=== PATIENT | male | born 1945 | race Caucasian/White ===

== ENCOUNTER 2019-03-31 06:10 | Day surgery (SDC) | payer MEDICARE ==
[2019-03-31] VITALS (11 sets, daily range): BP systolic 130–165; BP diastolic 50–82
[~2019-03-31] VITALS: Ht 170.2 cm; Wt 111.1 kg
[2019-03-31] MEDS ORDERED: Pred Forte 1% Opth Susp 1ml RIGHT EYE ONE (07:00)
[2019-03-31] MEDS: Vigamox Opth Soln 3ml RIGHT EYE SCH ×3 (07:03→07:20)
[2019-03-31] MEDS: Phenylephrine 2.5% Op 2ml Soln RIGHT EYE SCH ×3 (07:03→07:20)
[2019-03-31] MEDS: Flurbiprofen 0.03% Opth Sol 2.5ml RIGHT EYE SCH ×3 (07:03→07:20)
[2019-03-31] MEDS: Cyclopentolate 1% Opth Sol 2ml RIGHT EYE SCH ×3 (07:03→07:20)
[2019-03-31] MEDS ORDERED: ATORVASTATIN CA20 MG ORAL (07:06)
[2019-03-31] MEDS ORDERED: FOLIC ACID1 MG ORAL (07:06)
[2019-03-31] MEDS ORDERED: LOSARTAN-HCTZ1 EACH ORAL (07:06)
[2019-03-31] MEDS ORDERED: ASPIRIN81 MG ORAL (07:07)
[2019-03-31] MEDS ORDERED: PREDNISONE10 MG ORAL (07:08)
[2019-03-31 07:26] LABS: BASOPHILS % (AUTO) 0.8 % (0.0-2.0); EOSINOPHILS % (AUTO) 0.7 % (0.0-3.0); HEMATOCRIT 42.5 % (42.0-52.0); HEMOGLOBIN 14.1 G/DL (14.2-18.0); LYMPHOCYTES % (AUTO) 13.7 % (20.0-45.0); MEAN CORPUSCULAR VOLUME 89 FL (80-99); MONOCYTES % (AUTO) 5.1 % (1.0-10.0); NEUTROPHILS % (AUTO) 79.7 % (45.0-75.0); PLATELET COUNT 190 K/UL (150-450); RED BLOOD COUNT 4.77 M/UL (4.70-6.10); RED CELL DISTRIBUTION WIDTH 13.3 % (11.6-14.8); WHITE BLOOD COUNT 13.2 K/UL (4.8-10.8)
[2019-03-31] MEDS ORDERED: EPINEPHrine 1mg/1ml Amp ONE (07:27)
[2019-03-31] MEDS ORDERED: Dexamethasone 4mg/ml vial ONE (07:28)
[2019-03-31] MEDS ORDERED: Kenalog-10 5ml Inj ONE (07:28)
[2019-03-31] MEDS ORDERED: Kenalog-40 1ml Vial ONE (07:28)
[2019-03-31] MEDS ORDERED: BSS 500ml btl ONE (07:28)
[2019-03-31] MEDS ORDERED: BSS 15ml BTL ONE (07:28)
[2019-03-31] MEDS ORDERED: Maxitrol Opth Oint 3.5gm ONE (07:28)
[2019-03-31] MEDS ORDERED: Lidocaine 2% MPF 5ml Vial INJ ONE (07:28)
[2019-03-31] MEDS ORDERED: Povidone-Iodine 5% opth solution ONE (07:28)
[2019-03-31] MEDS ORDERED: Bupivacaine 0.75% 30ml vial INJ ONE (07:29)
[2019-03-31] MEDS ORDERED: Tetracaine 0.5% Opth 4ml Soln ONE (07:29)
[2019-03-31] MEDS ORDERED: Sodium Hyaluronate 10 mg/ml 0.85ml ONE (07:29)
[2019-03-31 07:36] LABS: ANION GAP 7 mmol/L (5-15); BLOOD UREA NITROGEN 17 mg/dL (7-18); CALCIUM 9.3 MG/DL (8.5-10.1); CARBON DIOXIDE 29 MMOL/L (21-32); CHLORIDE 102 MMOL/L (98-107); CREATININE 0.9 MG/DL (0.55-1.30); POTASSIUM 4.6 MMOL/L (3.5-5.1); SODIUM 138 MMOL/L (136-145)
--- NOTE | 2019-03-31 09:20 | Anethesia Preoperative Eval ---
Anesthesia Pre-op PMH/ROS General Date of Evaluation: Mar 31, 2019 Anesthesiologist: Urban ASA Score: ASA 3 Mallampati Score Class I : Soft palate, uvula, fauces, pillars visible Class II: Soft palate, uvula, fauces visible Class III: Soft palate, base of uvula visible Class IV: Only hard plate visible Mallampati Classification: Class III Surgeon: Bijan Diagnosis: Right eye retinal detachment Surgical Procedure: Right eye vitrectomy and cornea repair Anesthesia History: none Family History: no anesthesia problems Allergies: Coded Allergies: No Known Allergies (Unverified , 03/28/19) Medications: see eMAR Patient NPO?: Yes NPO Date: Mar 30, 2019 NPO Time: 20:00 Past Medical History Cardiovascular: Reports: HTN, CAD - s/p CABG-quintuple bypass, 1998. Stable. No CP, NO SOB, METS>4, other - HLD; Denies: MA, valve dz, arrhythmia Pulmonary: Reports: ROBERTO CARLOS - severe, uses CPAP; Denies: asthma, COPD, other Gastrointestinal/Genitourinary: Denies: GERD, CRI, ESRD, other Neurologic/Psychiatric: Denies: dementia, CVA, depression/anxiety, TIA, other Endocrine: Denies: DM, hypothyroidism, steroids, other HEENT: Denies: cataract (L), cataract (R), glaucoma, NIKOLAI (L), NIKOLAI (R), other Hematology/Immune: Denies: anemia, DVT, bleeding disorder, other Musculoskeletal/Integumentary: Denies: OA, RA, DJD, DDD, edema, other Other: obesity - morbid PSxH Narrative: CABG-quintuple bypass, bilateral corneal transplants, T&A, lap appy, bilateral CTR Anesthesia Pre-op Phys. Exam Physician Exam Last Vital Signs Date Time Temp Pulse Resp B/P (MAP) Pulse Ox O2 Delivery O2 Flow Rate FiO2 03/31/19 07:16 Room Air 03/31/19 06:52 96.7 62 18 131/68 95 Constitutional: NAD Cardiovascular: RRR Respiratory: other - distant/diminished breath sounds bilaterally Airway Exam Mallampati Score: Class III MO: limited Neck: obese, short TMD: <2FB ROM: limited Teeth: missing, intact Anesthesia Pre-op A/P Labs Hematology Test 03/31/19 07:05 White Blood Count 13.2 K/UL (4.8-10.8) H Red Blood Count 4.77 M/UL (4.70-6.10) Hemoglobin 14.1 G/DL (14.2-18.0) L Hematocrit 42.5 % (42.0-52.0) Mean Corpuscular Volume 89 FL (80-99) Mean Corpuscular Hemoglobin 29.6 PG (27.0-31.0) Mean Corpuscular Hemoglobin Concent 33.2 G/DL (32.0-36.0) Red Cell Distribution Width 13.3 % (11.6-14.8) Platelet Count 190 K/UL (150-450) Mean Platelet Volume 6.7 FL (6.5-10.1) Neutrophils (%) (Auto) 79.7 % (45.0-75.0) H Lymphocytes (%) (Auto) 13.7 % (20.0-45.0) L Monocytes (%) (Auto) 5.1 % (1.0-10.0) Eosinophils (%) (Auto) 0.7 % (0.0-3.0) Basophils (%) (Auto) 0.8 % (0.0-2.0) Chemistry Test 03/31/19 07:05 Sodium Level 138 MMOL/L (136-145) Potassium Level 4.6 MMOL/L (3.5-5.1) Chloride Level 102 MMOL/L (98-107) Carbon Dioxide Level 29 MMOL/L (21-32) Anion Gap 7 mmol/L (5-15) Blood Urea Nitrogen 17 mg/dL (7-18) Creatinine 0.9 MG/DL (0.55-1.30) Estimat Glomerular Filtration Rate mL/min (>60) Glucose Level 110 MG/DL (74-106) H Calcium Level 9.3 MG/DL (8.5-10.1) Studies Pre-op Studies: EKG - SB arrythmia with inverted t waves in anterior leads- this is patients baseline as per control systems specialist Risk Assessment & Plan Assessment: ASA III Plan: GA Status Change Before Surgery: No Pre-Antibiotics Drug: N/A Mariya Mello MD Mar 31, 2019 09:20
--- NOTE | 2019-03-31 09:24 | Pre-Procedure Note/Attestation ---
Pre-Procedure Note/Attestation Complete Prior to Procedure Planned Procedure: right Procedure Narrative: 1) PPV, endolaser, possible gas injection, possible silicone oil injection Right eye. 2) Reinforcement of penetrating keratoplasty wound RIght eye Indications for Procedure Pre-Operative Diagnosis: Rupture of penetrating keratoplasty wound, vitreous hemorrhage, possible localized retinal detachment Right eye Attestation I attest that I discussed the nature of the procedure; its benefits; risks and complications; and alternatives (and the risks and benefits of such alternatives ), prior to the procedure, with the patient (or the patient's legal education courses sales representative). I attest that, if there was a reasonable possibility of needing a blood transfusion, the patient (or the patient's legal education courses sales representative) was given the [place] [facility] standardized written summary, pursuant to the [place] Blood Safety Act ([place] Health and Safety Code # 1645, as amended). I attest that I re-evaluated the patient just prior to the surgery and that there has been no change in the patient's H&P, except as documented below: Max Hugo MD Mar 31, 2019 09:24
[2019-03-31] MEDS ORDERED: LR 1000ml ONE (09:30)
[2019-03-31] MEDS ORDERED: HYDROcodone/Acetamin 5/325 tab ORAL PRN (09:30)
[2019-03-31] MEDS ORDERED: Sterile Water Irrig 1000ml IRRIG ONE (09:30)
[2019-03-31] MEDS ORDERED: NS Irrig 1000ml ONE (09:30)
[2019-03-31] MEDS ORDERED: Propofol 200mg/20ml IV ONE (09:35)
[2019-03-31] MEDS ORDERED: fentaNYL 100 mcg/2 mL IV ONE (09:35)
[2019-03-31] MEDS ORDERED: Midazolam 2mg/2ml Inj ONE (09:35)
[2019-03-31] MEDS ORDERED: Lidocaine 1% MPF 10mg/ml 5ml ONE (09:35)
[2019-03-31] MEDS ORDERED: Fluorescein Strips ONE ×2 (09:58→10:03)
[2019-03-31] MEDS ORDERED: LR 1000ml 1,000 ML IVLG SCH (10:11)
[2019-03-31] MEDS ORDERED: LORazepam Inj 2mg/ml 1ml IV PRN (10:15)
[2019-03-31] MEDS ORDERED: DiphenhydrAMINE 50mg/ml Inj IVP PRN (10:15)
[2019-03-31] MEDS ORDERED: Metoclopramide 10mg/2ml Inj IVP PRN (10:15)
--- NOTE | 2019-03-31 12:15 | 48 Hour Post Anesthesia Eval ---
Post Anesthesia Evaluation Procedure: Right eye posterior vitrectomy, and corneal repair Date of Evaluation: Mar 31, 2019 Airway: patent Nausea: No Vomiting: No Pain Intensity: 0 Hydration Status: adequate Cardiopulmonary Status: at baseline Mental Status/LOC: patient returned to baseline Post-Anesthesia Complications: 0 Follow-up care needed: ready to discharge Mariya Mello MD Mar 31, 2019 12:15
--- NOTE | 2019-03-31 12:15 | Immediate Post-Op Evaluation ---
Immediate Post-Op Evalulation Immediate Post-Op Evalulation Procedure: Right eye posterior vitrectomy, and corneal repair Date of Evaluation: Mar 31, 2019 Time of Evaluation: 12:14 IV Fluids: 600 Blood Products: 0 Estimated Blood Loss: 0 Urinary Output: 0 Blood Pressure Systolic: 165 Blood Pressure Diastolic: 82 Pulse Rate: 72 Respiratory Rate: 16 O2 Sat by Pulse Oximetry: 99 Temperature (Fahrenheit): 97.2 Pain Score (1-10): 0 Nausea: No Vomiting: No Complications 0 Patient Status: awake, reacts, patent, none Hydration Status: adequate Drug: N/A Mariya Mello MD Mar 31, 2019 12:15
--- NOTE | 2019-03-31 20:45 | Operative Note - Dictated ---
DATE OF OPERATION: 03/31/2019 PREOPERATIVE DIAGNOSES: Corneal wound rupture with loss of intraocular contents, vitreous hemorrhage, and retinal detachment, right eye. POSTOPERATIVE DIAGNOSES: Corneal wound rupture with loss of intraocular contents, vitreous hemorrhage, and retinal detachment, right eye. PROCEDURES: This was performed by Dr. Rene Chavez. Please refer to a separate operative report. This procedure was reinforcement of corneal transplant wound with lysis of anterior chamber adhesions and the next surgery performed by Dr. Hugo was a pars plana vitrectomy, membrane dissection, posterior retinotomy, Kenalog injection, endolaser, and silicone oil injection to right eye. SURGEONS: For the first procedure, Dr. Chavez with assistant in nursing, Dr. Hugo. Second procedure, Dr. Hugo with assistant in nursing, Dr. Chavez. ANESTHESIA: General by Dr. Bean. JUSTIFICATION FOR SURGERY: This is a 73-year-old gentleman, who sustained an accidental rupture of his globe while imbrication in [place] with exposure of the intra-ocular contents. There was primary closure in [place], but on return to the [facility], he was found to have a leaking corneal transplant wound as well as a vitreous hemorrhage and underlying retinal detachment. BRIEF NOTE: The patient was brought to the operating room and placed on OR table in supine position. After time-out was performed and agreed upon by the staff, general anesthesia was induced by Dr. Bean. The patient was then prepped and draped in normal manner. A lid speculum was inserted into the right eye. The first portion of the procedure was performed by Dr. Chavez with reinforcement of the wound and lysis of adhesions. Please refer to an operative report done by Dr. Chavez. The procedure was then turned over to Dr. Hugo. Using a 23-gauge trocar system, cannulas were placed in all except infranasal quadrant. Infusion secured inferotemporally. Vitrectomy was begun posterior to the iris plane. Initially adhesions coming forward into the anterior chamber and touching the iris were lysed. Kenalog was used to aid in visualization of the vitreous. A large bullous retinal detachment was seen inferiorly with the macula appearing to either be shallowly detached or remaining on. Scleral depression was done and no definite peripheral breaks, tears, or dialyses were seen. Because of the detachment and the nature of the condition, it was felt that the best approach was endo drainage through a posterior retinotomy, barricade laser, and the placement of silicone oil. Once the vitrectomy was completed leaving a small vitreous skirt, the Endo cautery was used to form a small retinotomy slightly nasal and inferior to the optic nerve. Using a soft tip with extrusion, an air-fluid exchange was performed with drainage of the subretinal fluid from the retinotomy. The retina was noted to flatten nicely. The endolaser was brought into the eye and a power of 0.5 bateman and duration of 0.2 seconds, a total of 1500 lesions were applied. Barricade was made along the inferior 6 o'clock hours performing essentially new pars plana. The posterior retinotomy was also closed. Repeat scleral depression again revealed no definite visible breaks. Silicone oil, 5000 centistokes was then chosen and the eye was filled to roughly a 95% volume. Air bubble was left in the anterior chamber and the globe was left soft to normal. At the conclusion of this maneuver, the two superior cannulas were removed and the sclerotomies closed with 8-0 Vicryl. Overlying conjunctiva was secured with 6-0 plain catgut. The infusion line was also removed and closed in a similar fashion. Subconjunctival Decadron and gentamicin was given and topical atropine, moxifloxacin, and Maxitrol ointments were instilled. A limited peribulbar injection of Xylocaine 2% was given in an effort to limit postoperative pain. The eye was patched and shielded and the patient taken to recovery in excellent condition, there were no complications. Max Hugo M.D. DR: DOLLY JOB#: [id number] CC: Max Hugo M.D.; Fax#: [phone] RENE CHAVEZ M.D. ; FAX#: [phone]
--- NOTE | 2019-04-01 09:45 | Pre-op HX & Phy Repo 2 SIG ---
DATE OF ADMISSION: 03/28/2019 DATE OF SURGERY: 03/31/2019. PREOPERATIVE DIAGNOSES: 1. Vitreous hemorrhage with retinal detachment, right eye. 2. Ruptured corneal transplant wound, right eye. SURGEON: Max Hugo M.D. CO-SURGEON: Delfino Chavez M.D. BRIEF NOTE: This is the first [place] retinal surgery admission for the patient who is a very nice 73-year-old gentleman who 2 weeks ago while in [place] accidentally hit his right eye on an end table. He ruptured a previously placed corneal transplant wound with expulsion of his crystalline lens. He was seen in [place] where a primary closure was done. On evaluation in this country, he was noted to have hypotony, a wound leak, vitreous hemorrhage, and what appeared to be a retinal detachment on ultrasound. He is admitted for definitive repair. 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 MEDICAL HISTORY: Remarkable for hypertension. SOCIAL HISTORY: He does not smoke and drinks occasionally. MEDICATIONS: He is on levofloxacin, atorvastatin, cephalexin, and losartan. ALLERGIES: He has no known allergies. PHYSICAL EXAMINATION: Best vision was counting fingers at 4 feet in the right eye, 20/40 in the left. There appeared to be constriction of visual burnett to hand motions only. The pupil was fixed and dilated. The left anterior segment showed normal pupillary reaction with full burnett. The anterior segment on the right showed a subconjunctival hemorrhage. There is a bandage contact lens in place. A large band of corneal sutures were seen across the previous penetrating keratoplasty wound inferiorly. There was iris adherent to the inferior wound and a small hyphema. There was aphakia with no lens capsule and there appeared to be vitreous coming from posteriorly into the anterior chamber towards the wound. The left anterior segment showed a well-healed penetrating keratoplasty wound with a clear corneal graft. Funduscopic examination of the right eye could not be clearly seen. There appeared to be a localized retinal detachment through a moderate vitreous hemorrhage. An ultrasound was done and showed a vitreous hemorrhage. More suspicious for localized detachment. The left fundus was clear with the retina all attached. General physical examination will be done by Dr. Hayward on arrival. ASSESSMENT: 1. Vitreous hemorrhage with retinal detachment, status post trauma right eye. 2. Leaking corneal transplant wound, right eye. PLAN: The plan is to perform a pars plana vitrectomy with removal of the blood, exploration and repair of the localized retinal detachment. Dr. Chavez will be co-surgeon and will re-enforce the ruptured wound. The risks and benefits of surgery have been explained to the patient including potential for infection, the need for additional operations, and remote possibility of loss of the eye. We explained to him that we will not place a lens implant at this time, seeing their goal is to secure the wound and repair of the retina. The patient understands and consents to the surgery, which will be performed on Sunday. Max Hugo M.D. DR: LORI JOB#: [id number] CC:
--- NOTE | 2019-04-07 02:45 | Operative Note - Dictated ---
DATE OF OPERATION: 03/31/2019 SURGEON: Delfino Chavez M.D. [employer]ILL WORKER SURGEON: Max Hugo M.D. ANESTHESIA: Local with monitored anesthesia care. ANESTHESIOLOGIST: Dr. Bean. PREOPERATIVE DIAGNOSES: 1. Wound dehiscence, right eye. 2. Traumatic rupture of corneal wound, right eye. POSTOPERATIVE DIAGNOSES: 1. Repair of traumatic rupture of the corneal wound, right eye. 2. of intraocular contents, right eye. 3. Lysis of anterior synechiae. SPECIMENS: None. COMPLICATIONS: None. INDICATIONS FOR SURGERY: The patient is a very pleasant 73-year-old gentleman who was in [place] when he accidentally hit his right eye causing the rupture of a cornea transplant wound. This was tried to be repaired in [place], and he then returned to the [facility]. He had a wound leak where he had numerous sutures that were left with suture tails exposed as well as an intermittent wound leak of the rupture. FINDINGS: The patient had multiple small sutures having the suture tails exposed in the wound that was attempted to be previously repaired. There were dense severe anterior synechiae at approximately 8 o'clock as well as an iridodialysis at 8 o'clock extending from approximately 7 o'clock to 9 o'clock. OPERATIVE REPORT: After informed consent was obtained, the patient was brought into the operating room and placed in supine position. Cardiac and respiratory monitors were attached. A time-out was performed and all criteria were met and everyone in the room agreed. The right eye was draped and prepped in sterile manner for ocular surgery. This was done after general anesthesia was induced by Dr. Bean. A lid speculum was placed in the right eye. I became the primary surgeon at this time. The 10-0 nylon sutures were removed and all replaced with interrupted 10-0 nylon sutures. There was anterior synechiae and iris to the wound as well as possible vitreous. I was able to make a paracentesis at approximately 3 o'clock and with the cyclodialysis spatula, I was able to remove the iris from the wound and also lyse any anterior synechiae. All the 10-0 nylon knots were rotated and buried. The wound was checked and found to be Juan Diego negative. At this point, Dr. Hugo became the primary surgeon and I became the biology laboratory assistant surgeon. Delfino Estephanie Chavez DR: LATOYA JOB#: [id number] CC:
== END 2019-03-31 14:20 | disposition home or self-care (01) ==
LOC: SUR 06:10
DX: S05.21XA Ocular laceration and rupture with prolapse or loss of intraocular tissue, right eye, initial encounter (principal); H43.11 Vitreous hemorrhage, right eye; T81.30XA Disruption of wound, unspecified, initial encounter; H33.21 Serous retinal detachment, right eye; E66.9 Obesity, unspecified; I11.9 Hypertensive heart disease without heart failure; I25.10 Atherosclerotic heart disease of native coronary artery without angina pectoris; G47.33 Obstructive sleep apnea (adult) (pediatric); E78.5 Hyperlipidemia, unspecified; Z95.1 Presence of aortocoronary bypass graft; Z90.89 Acquired absence of other organs; Z68.38 Body mass index [BMI] 38.0-38.9, adult; W22.09XA Striking against other stationary object, initial encounter; Y92.9 Unspecified place or not applicable
CPT/HCPCS: 36415; 66250; 67040; 80048; 85025; 93005; J0171; J1100; J2250; J2704; J3010; J3301; J3470; J3490; 94003; 94150

== ENCOUNTER 2019-08-27 05:35 | Day surgery (SDC) | payer MEDICARE ==
--- NOTE | 2019-08-25 17:45 | Pre-op HX & Phy Repo 2 SIG ---
DATE OF ADMISSION: 08/27/2019 Surgery will be on 08/27/2019. PREOPERATIVE DIAGNOSIS: Status post retinal detachment repair with silicone oil, right eye. BRIEF NOTE: This is a second [place] admission for the patient who is a very nice 74-year-old gentleman with a history of a ruptured globe and subsequent retinal detachment on the right eye. The patient had undergone prior corneal transplant surgery in both eyes in 1997. While visiting [place] in February 2019, he sustained trauma during the fall on the right side during which the globe ruptured along the previous corneal transplant line with expulsion of the crystalline lens. This was primarily repaired in [place] and after evaluation here, he was found to have a wound leak and presence of a retinal detachment. He underwent a combined surgery with myself and Dr. Chavez in early March 2019 during which the wound was reinforced, vitrectomy was performed, and silicone oil placement was made for a significant retinal detachment. He has done reasonably well with the retina remaining flat. He is admitted now for silicone oil removal and will have subsequent surgery by Dr. Chavez to replace the cornea and possibly insert a secondary intraocular lens. PAST MEDICAL HISTORY: Remarkable for hypertension. MEDICATIONS: He is maintained on losartan, atorvastatin, and levofloxacin. ALLERGIES: He has no allergies. PHYSICAL EXAMINATION: Best vision at the time of admission was counting fingers in the right eye and 20/40 on the left. The pressures were 18 and 16. The anterior segment on the right showed a resorbed subconjunctival hemorrhage. There were extensive corneal sutures, but the cornea itself appeared irregular. The patient was aphakic without a present lens capsule. Funduscopic examination through the cornea and silicone oil revealed a flat retina with an 85% silicone filled. There was extensive laser down below and closed retinotomy nasal to the optic nerve. The left fundus was benign. ASSESSMENT: 1. Status post retinal detachment repair with silicone oil, right eye. 2. Aphakia. PLAN: The plan is to perform a pars plana vitrectomy, removal of silicone oil on the right. Endolaser will be done as needed and gas fluid exchange performed. The risks and benefits of surgery have been gone over with the patient including potential for infection, recurrent detachment, hemorrhaging, and possibility of loss of the eye. The risk of anesthesia was discussed. The patient understands and consents to the surgery, which will be performed on Sunday. Max Hugo M.D. DR: LORI JOB#: [id number] CC:
[2019-08-27] VITALS (9 sets, daily range): BP systolic 118–152; BP diastolic 64–74
[~2019-08-27] VITALS: Ht 170.2 cm; Wt 106.6 kg
[~2019-08-27 05:35] MED LIST: ASPIRIN81 MG ORAL; ATORVASTATIN CA20 MG ORAL; FOLIC ACID1 MG ORAL; LOSARTAN-HCTZ1 EACH ORAL; PREDNISOLONE ACE5 M1 OP; PREDNISONE10 MG ORAL
[2019-08-27] MEDS ORDERED: fentaNYL 100 mcg/2 mL IV ONE (05:36)
[2019-08-27] MEDS ORDERED: Midazolam 2mg/2ml Inj ONE (05:36)
[2019-08-27] MEDS ORDERED: Pred Forte 1% Opth Susp 1ml RIGHT EYE ONE (06:00)
[2019-08-27] MEDS: Cyclopentolate 1% Opth Sol 2ml RIGHT EYE SCH ×3 (06:02→06:25)
[2019-08-27] MEDS: Flurbiprofen 0.03% Opth Sol 2.5ml RIGHT EYE SCH ×3 (06:02→06:26)
[2019-08-27] MEDS: Vigamox Opth Soln 3ml RIGHT EYE SCH ×3 (06:02→06:26)
[2019-08-27] MEDS: Phenylephrine 2.5% Op 2ml Soln RIGHT EYE SCH ×3 (06:02→06:26)
[2019-08-27] MEDS ORDERED: Kenalog-10 5ml Inj ONE (07:24)
[2019-08-27] MEDS ORDERED: Polysporin Opth Oint 3.5gm ONE (07:24)
[2019-08-27] MEDS ORDERED: Kenalog-40 1ml Vial ONE (07:24)
[2019-08-27] MEDS ORDERED: Lidocaine 2% MPF 5ml Vial INJ ONE (07:24)
[2019-08-27] MEDS ORDERED: EPINEPHrine 1mg/1ml Amp ONE (07:24)
[2019-08-27] MEDS ORDERED: Dexamethasone 4mg/ml vial ONE (07:24)
[2019-08-27] MEDS ORDERED: Pred Forte 1% Opth Susp 1ml ONE (07:24)
[2019-08-27] MEDS ORDERED: Tetracaine 0.5% Opth 4ml Soln ONE (07:25)
[2019-08-27] MEDS ORDERED: Bupivacaine 0.75% 30ml vial INJ ONE (07:25)
[2019-08-27] MEDS ORDERED: BSS 15ml BTL ONE (07:25)
[2019-08-27] MEDS ORDERED: BSS 500ml btl ONE (07:25)
[2019-08-27] MEDS ORDERED: Hyaluronidase 150 units/ml vial ONE (07:26)
[2019-08-27] MEDS ORDERED: Sodium Hyaluronate 10 mg/ml 0.85ml ONE (07:26)
[2019-08-27] MEDS ORDERED: Lidocaine 1% MPF 10mg/ml 5ml ONE (07:30)
[2019-08-27] MEDS ORDERED: LR 1000ml ONE (07:30)
[2019-08-27] MEDS ORDERED: Sterile Water Irrig 1000ml IRRIG ONE (07:30)
[2019-08-27] MEDS ORDERED: fentaNYL 100 mcg/2 mL IV PRN (07:30)
[2019-08-27] MEDS ORDERED: Propofol 200mg/20ml IV ONE (07:30)
[2019-08-27] MEDS ORDERED: NS Irrig 1000ml ONE (07:30)
--- NOTE | 2019-08-27 07:30 | Anethesia Preoperative Eval ---
Anesthesia Pre-op PMH/ROS General Date of Evaluation: Aug 27, 2019 Time of Evaluation: 07:28 Anesthesiologist: susan ASA Score: ASA 3 Mallampati Score Class I : Soft palate, uvula, fauces, pillars visible Class II: Soft palate, uvula, fauces visible Class III: Soft palate, base of uvula visible Class IV: Only hard plate visible Mallampati Classification: Class III Surgeon: gail Diagnosis: retinal detachement Surgical Procedure: vitrectomy Anesthesia History: none Family History: no anesthesia problems Allergies: Coded Allergies: No Known Allergies (Unverified , 08/26/19) Medications: see eMAR Patient NPO?: Yes NPO Date: Aug 27, 2019 NPO Time: 00:01 Past Medical History Cardiovascular: Reports: HTN, CAD, MA Pulmonary: Reports: ROBERTO CARLOS; Denies: asthma, COPD, other Gastrointestinal/Genitourinary: Denies: GERD, CRI, ESRD, other Neurologic/Psychiatric: Denies: dementia, CVA, depression/anxiety, TIA, other Endocrine: Denies: DM, hypothyroidism, steroids, other HEENT: Denies: cataract (L), cataract (R), glaucoma, TIMBI-SHA SHOSHONE (L), TIMBI-SHA SHOSHONE (R), other Hematology/Immune: Denies: anemia, DVT, bleeding disorder, other Musculoskeletal/Integumentary: Denies: OA, RA, DJD, DDD, edema, other Other: obesity PSxH Narrative: right eye retinal repair march 31 Anesthesia Pre-op Phys. Exam Physician Exam Last Vital Signs Date Time Temp Pulse Resp B/P (MAP) Pulse Ox O2 Delivery O2 Flow Rate FiO2 08/27/19 06:17 97.0 53 20 127/65 96 Room Air Constitutional: NAD Neurologic: CN 2-12 intact Cardiovascular: RRR Respiratory: CTA Gastrointestinal: S/NT/ND Airway Exam Mallampati Classification 3 Mallampati Score: Class III ROM: full Dentures: no upper, no lower Anesthesia Pre-op A/P Studies Pre-op Studies: EKG - sr Risk Assessment & Plan Assessment: denies changes in health since last surgery Plan: general/mac Status Change Before Surgery: No Pre-Antibiotics Drug: declined Sasha Bruno CRNA Aug 27, 2019 07:30
[2019-08-27] MEDS ORDERED: Povidone-Iodine 5% opth solution ONE (07:36)
--- NOTE | 2019-08-27 07:37 | Pre-Procedure Note/Attestation ---
Pre-Procedure Note/Attestation Complete Prior to Procedure Planned Procedure: right Procedure Narrative: PPV, removal of silicone oil, possible endolaser RIGHT eye Indications for Procedure Pre-Operative Diagnosis: S/P retinal detachment repair with silicone oil RIGHT eye Attestation I attest that I discussed the nature of the procedure; its benefits; risks and complications; and alternatives (and the risks and benefits of such alternatives ), prior to the procedure, with the patient (or the patient's legal public relations representative). I attest that, if there was a reasonable possibility of needing a blood transfusion, the patient (or the patient's legal public relations representative) was given the [facility] standardized written summary, pursuant to the [place] Blood Safety Act ([place] Health and Safety Code # 1645, as amended). I attest that I re-evaluated the patient just prior to the surgery and that there has been no change in the patient's H&P, except as documented below: Max Hugo MD Aug 27, 2019 07:37
[2019-08-27] MEDS ORDERED: HYDROcodone/Acetamin 5/325 tab ORAL PRN (07:45)
--- NOTE | 2019-08-27 09:19 | Brief Operative Note ---
Immediate Post Operative Note Operative Note Chief Complaint: Blurred vision Right eye Pre-op Diagnosis: S/P retinal detachment repair with silicone oil RIGHT eye Procedure: PPV, removal of silicone oil, examination and attempted peel of macular pucker/ scar Post-op Diagnosis: Previously repaired retinal detachment, silicone oil, macular pucker/scar Surgeon: Oanh Measurement Psychologist: chaka Anesthesiologist: Sasha Bloom CRNA Anesthesia: MAC Specimen: none Complications: none Condition: stable Fluids: Per Anesthesia Estimated Blood Loss: none Drains: none Implant(s) used?: No Max Hugo MD Aug 27, 2019 09:19
--- NOTE | 2019-08-27 09:21 | Immediate Post-Op Evaluation ---
Immediate Post-Op Evalulation Immediate Post-Op Evalulation Procedure: right eye vitrectomy Date of Evaluation: Aug 27, 2019 Time of Evaluation: 09:20 IV Fluids: 600 Blood Products: 0 Estimated Blood Loss: 1 Blood Pressure Systolic: 143 Blood Pressure Diastolic: 64 Pulse Rate: 46 Respiratory Rate: 14 O2 Sat by Pulse Oximetry: 95 Temperature (Fahrenheit): 97.5 Pain Score (1-10): 0 Nausea: No Vomiting: No Complications none Patient Status: awake, reacts, patent Hydration Status: adequate Drug: none Sasha Bruno CRNA Aug 27, 2019 09:20
--- NOTE | 2019-08-27 15:27 | 48 Hour Post Anesthesia Eval ---
Post Anesthesia Evaluation Procedure: right eye vitrectomy Date of Evaluation: Aug 27, 2019 Time of Evaluation: 15:26 Blood Pressure Systolic: 136 0: 69 Pulse Rate: 51 Respiratory Rate: 14 O2 Sat by Pulse Oximetry: 98 Airway: patent Nausea: No Vomiting: No Hydration Status: adequate Cardiopulmonary Status: stable Mental Status/LOC: patient returned to baseline Follow-up Care/Observations: na Post-Anesthesia Complications: none Follow-up care needed: N/A Sasha Bruno CRNA Aug 27, 2019 15:27
--- NOTE | 2019-08-27 22:16 | Operative Note - Dictated ---
DATE OF OPERATION: 08/27/2019 PREOPERATIVE DIAGNOSIS: Status post retinal detachment repair with silicone oil. POSTOPERATIVE DIAGNOSIS: Status post retinal detachment repair with silicone oil with central macular pucker/scar. PROCEDURES PERFORMED: 1. Pars plana vitrectomy. 2. Removal of silicone oil. 3. Examination and partial peel of small epiretinal membrane, right eye. SURGEON: Max Hugo M.D. PRINTING AGENT: None. ANESTHESIA: Local with sedation. ANESTHESIOLOGIST: Sasha Bruno CRNA. JUSTIFICATION FOR SURGERY: This 74-year-old gentleman who sustained a ruptured globe while on vacation in [place] several months ago. Repair was done by co-surgeons, Dr. Max Hugo and Dr. Delfino Chavez. The repair included placement of silicone oil for retinal detachment and extensive endolaser. He was admitted for removal of the oil and examination of the retina. BRIEF NOTE: The patient was brought to the operative room, placed on the OR table in supine position. After a time-out was performed and agreed upon by the staff and initial monitoring secured by nurse, Kiana, he was given a retrobulbar and [place]int block in the standard way. When the blocks taken effect, he was prepped and draped in normal manner. A lid speculum inserted into the right eye. Using a 23-gauge trocar system, cannulas were placed in all except infranasal quadrant. Infusion secured inferotemporally. The eye was examined with the wide-angle viewing system prior to oil extraction. The retina was examined 360 degrees and was all attached with adequate laser having been performed. Of note, was a macular pucker/scar, which appeared to be principally subretinal with extension of the puckering toward the optic nerve. The silicone oil was removed initially with a 23-gauge cannula, but because of the dense viscosity of the oil, the supratemporal wound was opened to 20-gauge size and the oil removal completed with a 20-gauge intracath. All bubbles were removed from the anterior chamber. The 20-gauge wound was closed and a cannula reinserted just above. Coronal epithelium was removed centrally for better view and a posterior viewing lens was inserted. A central scar, which appeared to be extending from subretinal was noted with folds in the retina extending toward the nerve in a faint epiretinal membrane. This was felt to possibly have been related to a small choroidal rupture sustained at the time of the initial injury. An attempt was made to peel the preretinal portion of the scar, but the pucker in the central macula was noted to be densely fibrotic and extending into the subretinal space. No further attempts were made at peeling this lesion. The instruments were removed from the eye and the two temporal sclerotomy was closed with 8-0 Vicryl suture. Conjunctiva overlying these was closed with 6-0 plain catgut. The supranasal sclerotomy was closed with a single suture of 8-0 Vicryl with the knots buried toward the edge of the wound. Subconjunctival Decadron and gentamicin were injected inferiorly and topical prednisolone drops, moxifloxacin drops, atropine drops, and Maxitrol ointment were instilled. The eye was patched and shielded. The patient taken to recovery in excellent condition. COMPLICATIONS: There were no complications. It should be noted that the central scar, which likely resulted from a small choroidal rupture at the time of the initial injury will more than likely limit central vision. The epiretinal portion of this was peeled, but the subretinal scar was not addressed. Max Hugo M.D. DR: VINCENT JOB#: [id number] CC: Delfino Chavez M.D.; Fax#: [phone]
== END 2019-08-27 10:30 | disposition home or self-care (01) ==
LOC: SUR 05:35
DX: H27.01 Aphakia, right eye (principal); H35.371 Puckering of macula, right eye; I10 Essential (primary) hypertension; Z88.8 Allergy status to other drugs, medicaments and biological substances; I11.9 Hypertensive heart disease without heart failure; I25.2 Old myocardial infarction; G47.33 Obstructive sleep apnea (adult) (pediatric); E66.9 Obesity, unspecified; Z68.36 Body mass index [BMI] 36.0-36.9, adult
CPT/HCPCS: 67041; J0171; J1100; J2250; J2704; J3010; J3470; J3490; 94003; 94150